=== PATIENT | male | born 1980 | race Two or more races ===

== ENCOUNTER 2024-04-07 01:29 | Emergency (ER) | payer OTHER ==
[~2024-04-07] VITALS: Ht 180.3 cm; Wt 90.9 kg
[2024-04-07 01:40] VITALS: TEMP 98.4
[2024-04-07 02:05] VITALS: BP 132/75; PULSE 71; RESP 18
== END 2024-04-07 02:41 | disposition home or self-care (01) ==
LOC: EMS 01:31
DX: S61.211A Laceration without foreign body of left index finger without damage to nail, initial encounter (principal); J45.909 Unspecified asthma, uncomplicated; W26.0XXA Contact with knife, initial encounter; Y93.89 Activity, other specified; Y92.89 Other specified places as the place of occurrence of the external cause; Y99.8 Other external cause status
CPT/HCPCS: 12001; 99282; Z7502